=== PATIENT | female | born 1965 ===

== ENCOUNTER 2023-10-28 08:43 | Outpatient (REF) | payer OTHER, SELFPAY ==
--- NOTE | ~2023-10-28 | US_ITS ---
EXAMINATION: US PELVIS COMPLETE US PELVIS ENDOVAGINAL CLINICAL INFORMATION: Postmenopausal bleeding COMPARISON: None. TECHNIQUE: Transabdominal and transvaginal images of the pelvis were obtained. FINDINGS: UTERUS: Anteverted. Normal size and contour, measuring 6.9 x 2.8 x 4.0 cm (cervix to fundus x AP x transverse). Uniform, homogeneous endometrium measures 0.3 cm in width. Potential endometrial polyp within the fundus measuring 0.6 x 0.2 x 0.4 cm. RIGHT OVARY: Normal size and echogenicity measuring 2.0 x 2.1 x 1.7 cm. LEFT OVARY: Surgically absent. No left adnexal masses or collections noted. FREE FLUID: No pelvic free fluid. US/US pelvic and transvaginal IMPRESSION: 1. Potential endometrial polyp within the fundus measuring 0.6 x 0.2 x 0.4 cm. If clinically warranted this can be further evaluated with hysterosonography. 2. Status post left-sided oophorectomy.
--- NOTE | ~2023-10-28 | US_ITS ---
EXAMINATION: US RETROPERITONEAL COMPLETE (RENAL) CLINICAL INFORMATION: Dysuria. COMPARISON: None available. TECHNIQUE: Real-time imaging of the kidneys and bladder. FINDINGS: RIGHT KIDNEY: 11.2 x 6.1 x 4.6 cm (SAG x AP x TRV). The kidney is normal in size, contour, and echogenicity. Renal cortical thickness is normal. No calculi or focal parenchymal lesions. No hydronephrosis. Mild right pelvic fullness. LEFT KIDNEY: 11.3 x 6.4 x 5.3 cm (SAG x AP x TRV). The kidney is normal in size, contour, and echogenicity. Renal cortical thickness is normal. No focal parenchymal lesions or hydronephrosis. Moderate left-sided hydronephrosis. Multiple left renal calculi are noted the largest measuring up to 2.3 cm in the interpolar region. BLADDER: Well distended and normal. Bilateral ureteral jets are demonstrated. Prevoid bladder volume is 359 mL. Postvoid bladder volume is 15 mL. US/US retroperitoneal comp IMPRESSION: 1. Moderate left-sided hydronephrosis with multiple left-sided renal calculi the largest measuring up to 2.3 cm in the interpolar region. 2. Mild right-sided pelvic fullness without nephrolithiasis. 3. Postvoid bladder volume of 15 mL with visualization of the bilateral ureteral jets.
== END 2023-10-28 08:44 | disposition home or self-care (01) ==
LOC: HO.UMASIMG 08:43
PROVIDERS: Visit Provider Registered Nurse
DX: R30.0 Dysuria (principal); R31.29 Other microscopic hematuria; N93.9 Abnormal uterine and vaginal bleeding, unspecified
CPT/HCPCS: 76770; 76830; 76856